=== PATIENT | female | born 1965 | race Caucasian/White ===

== ENCOUNTER → 2017-03-12 | Outpatient (CLI) | payer OTHER ==
[~2017-03-12] MED LIST: AUGMENTIN PO; CERTAGEN PO; EC-NAPROSYN500 MG PO; FLEXERIL PO; FOLIC ACID1 MG PO; IBUPROFEN PO; IMITREX6 MG/0.52 SQ; KEFLEX PO; PERCOCET10 PO; PERCOCET5/325 PO; PHENERGAN PO; PRILOSEC PO; SKELAXIN PO; TYLENOL325 M1 PO; ZOFRAN PO
[2017-03-12 09:37] LABS: HEMATOCRIT 34.4 % (35.0-45.0); HEMOGLOBIN 9.9 gm/dL (12.0-16.0); MEAN CELL VOLUME 66.5 FL (83-96); MEAN CORPUSCULAR HEMOGLOBIN 19.2 PG (28-34); MEAN CORPUSCULAR HGB CONC 28.8 g/dL (30-36); MEAN PLATELET VOLUME 8.5 FL (6.5-11.5); RED BLOOD COUNT 5.18 X10e (3.90-5.30); RED CELL DISTRIBUTION WIDTH 20.3 % (11.0-15.5); WHITE BLOOD COUNT 5.2 X10e3 (4.0-10.5)
== END | disposition home or self-care (01) ==
LOC: CLAB 09:04
PROVIDERS: Orthopaedic Surgery
DX: Z01.812 Encounter for preprocedural laboratory examination (principal); M19.072 Primary osteoarthritis, left ankle and foot
CPT/HCPCS: 36415; 85027

== ENCOUNTER 2017-04-21 22:26 | Emergency (ER) | payer OTHER ==
--- NOTE | ~2017-04-21 | CR20 ---
[facility] A Service of [facility] & [facility] RADIOLOGY TEXT RESULTS PATIENT: DAVID MAXWELL LOCATION: SED : 69 UNIT #: [id number] AGE: [address]: Craig Machado MD SEX: F ORDER DR: [id number] [address] [address] [id number] E MR#: [id number] Acc #: [id number] NAME: DAVID MAXWELL : 1965 SEX: F STUDY DATE/TIME: 04/22/2017 2:11 UNIT: SED ROOM: STUDY DESCRIPTION: CR Ankle Min 3 Views Lt Attending Physician: Craig Machado M.D. Ordering Physician: Craig Machado M.D. MEDICAL IMAGING REPORT This report is preliminary unless electronic signature is present. EXAM Left ankle INDICATION Left ankle pain after falling and landing on ankle last night. The patient has ankle fusion surgery on 03/16/2017. FINDINGS Three views of the left ankle were obtained. A fiberglass cast is present around the ankle. There has been fusion of the talus and calcaneus with a single large screw. There is no fracture identified. IMPRESSION There is a large screw transfixing the talus and the calcaneus. No fracture is visible. Dictated by... Naveen Mora M.D. THIS IS AN ELECTRONICALLY VERIFIED REPORT Naveen Mora M.D. at 04/22/2017 5:53 AM HARRIS/jace TD: 04/22/2017 03:33 JOB #: [id number] MEDICAL IMAGING REPORT Page 1 of 1
[~2017-04-21 22:26] MED LIST changes: -AUGMENTIN PO
[2017-04-21] MEDS ORDERED: AUGMENTIN PO (23:15)
== END 2017-04-22 02:59 | disposition home or self-care (01) ==
LOC: SED 22:26
DX: S90.02XA Contusion of left ankle, initial encounter (principal); Z88.8 Allergy status to other drugs, medicaments and biological substances; Z79.2 Long term (current) use of antibiotics; W01.0XXA Fall on same level from slipping, tripping and stumbling without subsequent striking against object, initial encounter
CPT/HCPCS: 73610; 99283